=== PATIENT | male | born 1975 | race Caucasian/White ===

== ENCOUNTER 2017-05-24 22:02 | Emergency (ER) | END 2017-05-25 02:27 | disposition home or self-care (01) ==

== ENCOUNTER 2017-08-31 11:35 | Day surgery (SDC) | END 2017-08-31 12:59 | disposition home or self-care (01) ==

== ENCOUNTER 2017-12-04 18:35 | Emergency (ER) | END 2017-12-04 21:45 | disposition home or self-care (01) ==

== ENCOUNTER 2017-12-30 15:38 | Emergency (ER) | END 2017-12-30 19:02 | disposition home or self-care (01) ==